=== PATIENT | male | born 1955 | race Caucasian/White ===

== ENCOUNTER 2021-07-28 19:24 | Inpatient (IN) | payer MEDICARE, OTHER ==
[~2021-07-28] VITALS: Ht 172 cm; Wt 117.2 kg
[2021-07-28] MEDS ORDERED: ACETAMINOPHEN 325 MG TABLET PO ONE (19:45)
[2021-07-28] MEDS ORDERED: NS IV 1000 ML 1,000 ML IV SCH (19:45)
--- NOTE | 2021-07-28 19:58 | ED General ---
General Chief Complaint: COVID19 Suspect/Confirmed Stated Complaint: FEVER,COUGH,BACK PAIN Source of Information: Patient, Spouse History of Present Illness Date Seen by Provider: Jul 28, 2021 Time Seen by Provider: 19:34 Initial Comments 66-year-old male presenting with complaint of cough for over a week and fever up to 101.4 today. He has had increased low back pain acute on chronic issue for him. He has had shortness of breath. He reports chills along with the fever. He was recently exposed to a family member with Covid when he went to a wedding on July 17. His symptoms started a few days after that, around July 21. He is visiting from [place] and does not have a local provider. He denies having trouble with his breathing in the past. He has no history of COPD or asthma. Timing/Duration: 1 Week Severity: Moderate Modifying Factors: worse with Movement Associated Systoms: No Chest Pain; Cough; No Diaphoresis; Fever/Chills; No Headaches, No Loss of Appetite; Malaise; No Nausea/Vomiting, No Seizure; Shortn ess of Air; No Syncope; Weakness (general) Allergies and Home Medications Allergies Coded Allergies: amoxicillin (Verified Allergy, Unknown, 07/28/21) Patient Home Medication List Home Medication List Reviewed: Yes Allopurinol (Allopurinol) 300 Mg Tablet, 300 MG PO, (Reported) Entered as Reported by: Ekta Ochoa on 07/29/2114 Last Action: New Order Amlodipine Besylate (Amlodipine Besylate) 2.5 Mg Tablet, 2.5 MG PO DAILY, (Reported) Entered as Reported by: Ekta Ochoa on 07/29/2114 Last Action: New Order Lisinopril (Lisinopril) 10 Mg Tablet, 10 MG PO DAILY, (Reported) Entered as Reported by: Ekta Ochoa on 07/29/2114 Last Action: New Order Omeprazole (Omeprazole) 20 Mg Capsule.dr, 20 MG PO, (Reported) Entered as Reported by: Ekta Ochoa on 07/29/2114 Last Action: New Order Simvastatin (Simvastatin) 20 Mg Tablet, 20 MG PO, (Reported) Entered as Reported by: Ekta Ochoa on 07/29/2114 Last Action: New Order Trazodone HCl (Trazodone HCl) 150 Mg Tablet, 150 MG PO, (Reported) Entered as Reported by: Ekta Ochoa on 07/29/21 0015 Last Action: New Order Review of Systems Review of Systems Constitutional: see HPI, chills, fever EENTM: nose congestion Respiratory: cough, dyspnea on exertion; No hemoptysis; phlegm, short of breath; No stridor, No wheezing Cardiovascular: No chest pain Gastrointestinal: No nausea, No vomiting Genitourinary: No dysuria Musculoskeletal: back pain (acute on chronic low back pain), muscle pain (generalized body aches) Skin: no symptoms reported Psychiatric/Neurological: No Symptoms Reported Past Wmfursq-Ixjtzu-Rzuuyp Hx Patient Social History Tobacco Use?: Yes Tobacco type used: Cigars Smoking Status: Light Tobacco Smoker Use of E-Cig and/or Vaping dev: No Substance use?: No Alcohol Use?: No Pt feels they are or have been: No Past Medical History Surgery/Hospitalization HX: HTN Physical Exam Vital Signs Vital Signs - First Documented 07/28/21 19:30 Temp 36.7 Pulse 98 Resp 16 B/P (MAP) 120/45 (70) Pulse Ox 92 O2 Delivery Room Air Capillary Refill : Height, Weight, BMI Height: '" Weight: lbs. oz. kg; BMI Method: General Appearance: No Apparent Distress, Obese HEENT: PERRL/EOMI, Pharynx Normal Neck: Full Range of Motion, Normal Inspection, Non Tender, Supple Respiratory: Chest Non Tender, Lungs Clear, No Accessory Muscle Use, No Respiratory Distress, Decreased Breath Sounds; No Stridor, No Wheezing Cardiovascular: Regular Rate, Rhythm, Normal Peripheral Pulses Gastrointestinal: Normal Bowel Sounds, No Pulsatile Mass, Non Tender, Soft Rectal: Deferred Extremity: Normal Capillary Refill, Normal Inspection, No Calf Tenderness, No Pedal Edema Neurologic/Psychiatric: Alert, Oriented x3, turn sewer II-XII Norm as Tested Skin: Normal Color, Warm/Dry Focused Exam Lactate Level 07/28/21 20:10: Lactic Acid Level 1.27 Lactic Acid Level Laboratory Tests Test 07/28/21 20:10 Lactic Acid Level 1.27 MMOL/L (0.50-2.00) Progress/Results/Core Measures Suspected Sepsis SIRS Temperature: Pulse: Respiratory Rate: Laboratory Tests 07/28/21 20:10: White Blood Count 4.5 Blood Pressure / Mean: 07/28/21 20:10: Lactic Acid Level 1.27 Laboratory Tests 07/28/21 20:10: Creatinine 0.97, INR Comment 0.9, Platelet Count 124L, Total Bilirubin 0.8 Results/Orders Lab Results Laboratory Tests Test 07/28/21 20:10 07/28/21 20:20 Range/Units White Blood Count 4.5 4.3-11.0 10^3/uL Red Blood Count 5.31 4.30-5.52 10^6/uL Hemoglobin 16.1 13.3-17.7 g/dL Hematocrit 45 40-54 % Mean Corpuscular Volume 86 80-99 fL Mean Corpuscular Hemoglobin 30 25-34 pg Mean Corpuscular Hemoglobin Concent 36 32-36 g/dL Red Cell Distribution Width 13.5 10.0-14.5 % Platelet Count 124 L 130-400 10^3/uL Mean Platelet Volume 10.4 9.0-12.2 fL Immature Granulocyte % (Auto) 1 % Neutrophils (%) (Auto) 80 H 42-75 % Lymphocytes (%) (Auto) 14 12-44 % Monocytes (%) (Auto) 5 0-12 % Eosinophils (%) (Auto) 0 0-10 % Basophils (%) (Auto) 0 0-10 % Neutrophils # (Auto) 3.6 1.8-7.8 X 10^3 Lymphocytes # (Auto) 0.6 L 1.0-4.0 X 10^3 Monocytes # (Auto) 0.2 0.0-1.0 X 10^3 Eosinophils # (Auto) 0.0 0.0-0.3 10^3/uL Basophils # (Auto) 0.0 0.0-0.1 10^3/uL Immature Granulocyte # (Auto) 0.0 0.0-0.1 10^3/uL Percent Immature Platelet Fraction 3.6 0.0-7.6 % Prothrombin Time 12.7 12.2-14.7 SEC INR Comment 0.9 0.8-1.4 Activated Partial Thromboplast Time 39 H 24-35 SEC D-Dimer 1.06 H 0.00-0.49 UG/ML Sodium Level 135 135-145 MMOL/L Potassium Level 3.9 3.6-5.0 MMOL/L Chloride Level 98 98-107 MMOL/L Carbon Dioxide Level 21 21-32 MMOL/L Anion Gap 16 H 5-14 MMOL/L Blood Urea Nitrogen 12 7-18 MG/DL Creatinine 0.97 0.60-1.30 MG/DL Estimat Glomerular Filtration Rate 77 BUN/Creatinine Ratio 12 Glucose Level 100 70-105 MG/DL Lactic Acid Level 1.27 0.50-2.00 MMOL/L Calcium Level 8.7 8.5-10.1 MG/DL Corrected Calcium 8.9 8.5-10.1 MG/DL Total Bilirubin 0.8 0.1-1.0 MG/DL Aspartate Amino Transf (AST/SGOT) 92 H 5-34 U/L Alanine Aminotransferase (ALT/SGPT) 70 H 0-55 U/L Alkaline Phosphatase 86 40-136 U/L Troponin I < 0.30 <0.30 NG/ML C-Reactive Protein 5.07 H <0.50 MG/DL Total Protein 7.3 6.4-8.2 GM/DL Albumin 3.8 3.2-4.5 GM/DL Influenza Type A Antigen NEGATIVE NEGATIVE Influenza Type B Antigen NEGATIVE NEGATIVE Blood Gas Puncture Site RT RADIAL Blood Gas Patient Temperature 36.7 Arterial Blood pH 7.46 H 7.37-7.43 Arterial Blood Partial Pressure CO2 32 L 35-45 MMHG Arterial Blood Partial Pressure O2 52 L 79-93 MMHG Arterial Blood HCO3 22 L 23-27 MMOL/L Arterial Blood Total CO2 23.0 21.0-31.0 MMOL/L Arterial Blood Oxygen Saturation 88 L 94-100 % Arterial Blood Base Excess -1.1 -2.5-2.5 MMOL/L Xavier Test OK Blood Gas Ventilator Setting NO Blood Gas Inspired Oxygen ROOM AIR My Orders Orders - SONJA REED MD Monitor-Rhythm Ecg Trace Only (07/28/21:40) Ed Iv/Invasive Line Start (07/28/21:40) Cbc With Automated Diff (07/28/21:40) Comprehensive Metabolic Panel (07/28/21:40) Crp Fs (07/28/21:40) Troponin I Fs (07/28/21:40) Protime With Inr (07/28/21:40) Partial Thromboplastin Time (07/28/21:40) Ekg Tracing (07/28/2140) Arterial Blood Gas (12/13/21 19:40) Ns Iv 1000 Ml (Sodium Chloride 0.9%) (07/28/21 19:45) Acetaminophen Tablet/Caplet (Tylenol T (07/28/21 19:45) Blood Culture (07/28/21 19:40) Lactic Acid Analyzer (07/28/21 19:40) Covid 19 Inhouse Test (07/28/21 19:40) Influenza A & B Antigens (07/28/21 19:40) Chest 1 View Ap/Pa Only (07/28/21 19:49) O2 (07/28/21 20:06) Ceftriaxone (Rocephin) (07/28/21 21:15) Azithromycin Injection (Zithromax Inject (07/28/21 21:11) Dexamethasone Injection (Decadron Inje (07/28/21 21:11) Ed Admission (Communication) (07/28/21 21:14) Ketorolac Injection (Toradol Injection) (07/28/21 22:00) Albuterol Inhaler (Albuterol) (07/28/21 22:00) Fibrin Degradation Products (07/28/21 20:10) Medications Given in ED Current Medications Medications Dose Ordered Sig/Janice Route Start Time Stop Time Status Last Admin Dose Admin Acetaminophen 650 mg ONCE ONCE PO 07/28/21 19:45 07/28/21 19:46 DC 07/28/21 20:28 650 MG Ceftriaxone Sodium 1000 mg/ Sterile Water 10 ml @ 60 mls/hr ONCE ONCE IV 07/28/21 21:15 07/28/21 21:24 DC 07/28/21 22:19 60 MLS/HR Ketorolac Tromethamine 30 mg ONCE ONCE IVP 07/28/21 22:00 07/28/21 22:01 DC 07/28/21 22:20 30 MG Vital Signs/I&O 07/28/21 07/28/21 07/28/21 07/28/21 19:30 20:30 21:30 21:30 Temp 36.7 Pulse 98 90 85 Resp 16 16 16 B/P (MAP) 120/45 (70) Pulse Ox 92 90 90 91 O2 Delivery Room Air Room Air Nasal Cannula Nasal Cannula O2 Flow Rate 2.00 2.00 07/28/21 22:30 Pulse 79 Resp 16 B/P (MAP) 112/53 Pulse Ox 93 O2 Delivery Nasal Cannula O2 Flow Rate 3.00 Capillary Refill : Progress Note #1: Progress Note With his exposure to a positive Covid patient and having symptoms for over a week with fever and cough and shortness of breath will place him in a Covid isolation room. Obtain basic labs in addition to blood cultures, lactic acid, ABG, chest x-ray, cardiac enzymes. Give IV fluids for hydration, Tylenol for fever. Differential diagnosis includes Covid infection, pneumonia, pulmonary embolism, CHF, acute myocardial infarction Progress Note #2: Progress Note Labs shows normal white blood cell count of 4.5. His lactic acid is not elevated. His electrolytes did not show acute significant abnormality to account for his shortness of breath. His ABG does go along with his hypoxia. On his ABG his pH was 7.46, PCO2 of 32, PO2 of 52 for an O2 sat of 88% on room air. His chest x-ray shows bilateral patchy infiltrates concerning for atypical pneumonia versus Covid. His oxygen saturation is dropping down the 85 to 87% at times on room air. On supplemental oxygen he comes up above 91%. Progress Note #3: Progress Note His influenza swab was negative. He has stable vital signs other than continued hypoxia unless he has supplemental oxygen. Discussed with Dr. Kaiser the on-call hospitalist for [facility]. She accepted the patient for admission for atypical pneumonia, hypoxia, PUI for Covid. Will start antibiotics here and she will place acute orders to continue treatment in the hospital ECG Initial ECG Impression Date: Jul 28, 2021 Initial ECG Impression Time: 20:16 Initial ECG Rate: 91 Initial ECG Rhythm: Normal Sinus Initial ECG Comparisson: No Previous ECG Available Comment Normal sinus rhythm with a heart rate of 91 bpm. Right bundle branch block is present. LA interval 142 ms. QT interval 392 ms with a QTc interval 483 ms. There is no acute ST elevation. There is no prior tracing available for comparison. Diagnostic Imaging Diagonstic Imaging: Xray Plain Films/CT/US/NM/MRI: chest Comments [facility], [place] NAME: OMERO AVENDANO [facility] REC#: [id number] PT STATUS: REG ER : 1955 PHYSICIAN: SONJA REED MD ADMIT DATE: 07/28/21/ER FS Signed Date of Exam:07/28/21 CHEST 1 VIEW AP/PA ONLY INDICATION: Cough and fever Frontal chest obtained at 08:33 p.m. There is no prior study for comparison. There is cardiomegaly. There is central vascular congestion. There are some patchy infiltrates in the perihilar regions and bases on both sides, suspect atypical pneumonia. There is no pneumothorax or gross pleural fluid. There is elevation of the right hemidiaphragm. IMPRESSION: Cardiomegaly and central vascular congestion with patchy infiltrates in the perihilar regions and bases on both sides, suspect atypical pneumonia. Dictated by: Dictated on workstation # [id number] Dict: 07/28/212042 Trans: 07/28/212055 [facility] [id number] Interpreted by: TAMEKA CORDOVA MD Electronically signed by: TAMEKA CORDOVA MD 07/28/212055 Reviewed: Reviewed by Me Departure Communication (Admissions) Time/Spoke to Admitting Phy: 21:09 d/w Dr. Kaiser and will admit for atypical pneumonia and possible COVID. She will place queued orders for the patient. Impression Primary Impression: Atypical pneumonia Additional Impressions: Hypoxemia Person under investigation for COVID-19 Fever Qualified Codes: R50.9 - Fever, unspecified Disposition: 30 STILL A PATIENT Condition: Stable Admissions Decision to Admit Reason: Admit from ER (General) Decision to Admit/Date: Jul 28, 2021 Time/Decision to Admit Time: 21:09 Departure-Patient Inst. Referrals: NO,LOCAL PHYSICIAN (PCP/Family) Primary Care Physician SONJA REED MD Jul 28, 2021 19:58
[2021-07-28 20:35] LABS: ABG PCO2 32 MMHG (35-45); ABG PH 7.46 (7.37-7.43); ABG PO2 52 MMHG (79-93)
[2021-07-28 20:36] LABS: ABG BASE EXCESS -1.1 MMOL/L (-2.5-2.5)
[2021-07-28 20:37] LABS: ABG OXYGEN SATURATION 88 % (94-100); ALLENS TEST OK; INSPIRED O2 ROOM AIR; PATIENT TEMP 36.7; VENTILATOR NO
[2021-07-28 20:44] LABS: HEMATOCRIT 45 % (40-54); HEMOGLOBIN 16.1 g/dL (13.3-17.7); MEAN CORPUSCULAR HEMOGLOBIN 30 pg (25-34); MEAN CORPUSCULAR HGB CONC 36 g/dL (32-36); MEAN CORPUSCULAR VOLUME 86 fL (80-99); MEAN PLATELET VOLUME 10.4 fL (9.0-12.2); PLATELET COUNT 124 10^3/uL (130-400); WHITE BLOOD COUNT 4.5 10^3/uL (4.3-11.0)
[2021-07-28 20:46] LABS: BASOPHILS % (AUTO) 0 % (0-10); EOSINOPHILS % (AUTO) 0 % (0-10); LYMPHOCYTES % (AUTO) 14 % (12-44); MONOCYTES % (AUTO) 5 % (0-12); NEUTROPHILS % (AUTO) 80 % (42-75)
[2021-07-28 20:47] LABS: LYMPHOCYTES # (AUTO) 0.6 X 10^3 (1.0-4.0); MONOCYTES # (AUTO) 0.2 X 10^3 (0.0-1.0); NEUTROPHILS # (AUTO) 3.6 X 10^3 (1.8-7.8)
--- NOTE | 2021-07-28 20:51 | Diagnostic Imaging Report ---
INDICATION: Cough and fever Frontal chest obtained at 08:33 p.m. There is no prior study for comparison. There is cardiomegaly. There is central vascular congestion. There are some patchy infiltrates in the perihilar regions and bases on both sides, suspect atypical pneumonia. There is no pneumothorax or gross pleural fluid. There is elevation of the right hemidiaphragm. IMPRESSION: Cardiomegaly and central vascular congestion with patchy infiltrates in the perihilar regions and bases on both sides, suspect atypical pneumonia. Dictated by: Dictated on workstation # [id number]
[2021-07-28 21:01] LABS: BUN/CREATININE RATIO 12; CARBON DIOXIDE 21 MMOL/L (21-32); CHLORIDE 98 MMOL/L (98-107); CREATININE SERUM 0.97 MG/DL (0.60-1.30); GFR ESTIMATED 77; POTASSIUM 3.9 MMOL/L (3.6-5.0); SODIUM 135 MMOL/L (135-145)
[2021-07-28 21:02] LABS: ALANINE AMINOTRANSFERASE 70 U/L (0-55); ALBUMIN 3.8 GM/DL (3.2-4.5); BILIRUBIN,TOTAL 0.8 MG/DL (0.1-1.0); CALCIUM 8.7 MG/DL (8.5-10.1); GLUCOSE 100 MG/DL (70-105); TOTAL PROTEIN 7.3 GM/DL (6.4-8.2)
[2021-07-28 21:03] LABS: ALKALINE PHOSPHATASE 86 U/L (40-136)
[2021-07-28] MEDS ORDERED: AZITHROMYCIN INJECTION 500 MG in NS (IVPB) 250 ML IV STA (21:11)
[2021-07-28] MEDS ORDERED: cefTRIAXone 1,000 MG in WATER (STERILE) FOR INJECTION 10 ML IV ONE (21:15)
[2021-07-28] MEDS ORDERED: KETOROLAC 30 MG/ML VIAL IVP ONE (22:00)
[2021-07-28 22:30] LABS: INR 0.9 (0.8-1.4); PROTHROMBIN TIME PATIENT 12.7 SEC (12.2-14.7)
[2021-07-28 22:33] LABS: FIBRIN DEGRADATION PRODUCTS 1.06 UG/ML (0.00-0.49)
[2021-07-28] MEDS: RT-ALBUTEROL HFA 8.5 GM INHALER IH SCH (23:18)
[2021-07-29] MEDS ORDERED: TRAZ150T72 PO (00:15)
[2021-07-29] MEDS ORDERED: SIMV20TA26 PO (00:15)
[2021-07-29] MEDS ORDERED: ALLO300T2 PO (00:15)
[2021-07-29] MEDS ORDERED: OMEP20CA18 PO (00:15)
[2021-07-29] MEDS ORDERED: LISI10TA25 PO (00:15)
[2021-07-29] MEDS ORDERED: AMLO2.5T4 PO (00:15)
[2021-07-29] MEDS ORDERED: ONDANSETRON 4 MG/2 ML (SDV) Z0FRAN IVP PRN (00:45)
[2021-07-29] MEDS ORDERED: ACETAMINOPHEN 325 MG TABLET PO PRN (00:45)
[2021-07-29 00:46] VITALS: BP 108/55
[2021-07-29] MEDS: RT-ALBUTEROL HFA 8.5 GM INHALER IH SCH ×7 (03:11→22:49)
[2021-07-29 04:25] VITALS: BP 136/62
--- NOTE | 2021-07-29 07:04 | History & Physical-Hospitalist ---
History of Present Illness HPI/Chief Complaint CC: Covid-19 pneumonia with hypoxic respiratory failure HPI: This is a 66yo[place] that began having symptoms on 07/21 diagnosed with Covid-19 and presented yesterday with SOB and low oxygen. He was assessed to need oxygen supplementation and IV medication to prevent decompensation. He appears to have increased BMI, high risk for intubation with underlying CONRAD. Home meds will be restarted and currently he is doing well. Source: patient Exam Limitations: no limitations Date Seen 07/29/21 Time Seen by a Provider: 10:30 Attending Physician Maira Kaiser DO PCP No,Local Physician Referring Physician Date of Admission Jul 29, 2021 at 00:12 Home Medications & Allergies Home Medications Reviewed patient Home Medication Reconciliation performed by pharmacy medication reconciliations calibration technician and/or nursing. Patients Allergies have been reviewed. Allergies Allergies Coded Allergies amoxicillin (Verified Allergy, Unknown, Rash, 07/29/21) Past Fhfqygd-Etvqtk-Mztbuj Hx Patient Social History Marrital Status: Employed/Student: retired Tobacco Use?: Yes Tobacco type used: Cigars Smoking Status: Light Tobacco Smoker Smokeless Tobacco Frequency: Never a User Use of E-Cig and/or Vaping dev: No Substance use?: No Alcohol Use?: Yes Alcohol type: Beer, Hard Liquor, Wine Alcohol Frequency: Once in a while Pt feels they are or have been: Yes Immunizations Up To Date Tetanus Booster (TDap): Unknown Hepatitis A: No Hepatitis B: No Current Status Advance Directives: No Communicates: Verbally Primary Language: Israeli Preferred Spoken Language: Israeli Is interpretation needed?: No Implanted or Applied Medical D: None Past Medical History High Cholesterol, Hypertension Gout Depression Review of Systems Constitutional: see HPI, malaise, weakness EENTM: no symptoms reported Respiratory: cough, dyspnea on exertion, short of breath Cardiovascular: no symptoms reported Gastrointestinal: no symptoms reported Genitourinary: no symptoms reported Musculoskeletal: no symptoms reported Skin: no symptoms reported Psychiatric/Neurological: No Symptoms Reported All Other Systems Reviewed Negative Unless Noted: Yes Physical Exam Physical Exam Vital Signs Vital Signs - First Documented 07/28/21 19:30 Temp 36.7 Pulse 98 Resp 16 B/P (MAP) 120/45 (70) Pulse Ox 92 O2 Delivery Room Air Capillary Refill : Less Than 3 Seconds Height, Weight, BMI Height: '" Weight: lbs. oz. kg; 39.61 BMI Method: General Appearance: No Apparent Distress, Anxious, Chronically ill, Obese Eyes: Right Eye Normal Inspection, Right Eye PERRL HEENT: PERRL/EOMI, Normal ENT Inspection, Pharynx Normal, Moist Mucous Membranes Neck: Full Range of Motion, Normal Inspection, Non Tender Respiratory: Chest Non Tender, No Accessory Muscle Use, No Respiratory Distress, Decreased Breath Sounds, Wheezing Cardiovascular: Regular Rate, Rhythm, No Edema, No Gallop, No JVD, No Murmur, Normal Peripheral Pulses Gastrointestinal: Normal Bowel Sounds, No Organomegaly, No Pulsatile Mass, Non Tender, Soft Back: Normal Inspection, No CVA Tenderness, No Vertebral Tenderness Extremity: Normal Capillary Refill, Normal Inspection, Normal Range of Motion, Non Tender, No Calf Tenderness, No Pedal Edema Neurologic/Psychiatric: Alert, Oriented x3, No Motor/Sensory Deficits, Normal Mood/Affect Skin: Normal Color, Warm/Dry Lymphatic: No Adenopathy Results Results/Procedures Labs Laboratory Tests 07/28/21 20:10 Patient resulted labs reviewed. Assessment/Plan Admission Diagnosis Assessment: Acute hypoxic respiratory failure COVID-19 pneumonia Morbid obesity BMI 40 Suspected CONRAD gout Hypertension Hyperlipidemia GERD Plan: COVID-19 treatment protocol Oxygen Home meds Admission Status: Inpatient Order (span 2 midnights) Reason for Inpatient Admission: COVID-19 pneumonia Diagnosis/Problems Diagnosis/Problems (1) COVID (2) Fever Status: Acute Qualifiers: Fever type: unspecified Qualified Codes: R50.9 - Fever, unspecified (3) Hypoxemia Status: Acute MAIRA KAISER DO Jul 29, 2021 07:04
[2021-07-29] MEDS ORDERED: ALLO100T PO (08:10)
[2021-07-29] MEDS ORDERED: TRZ50T PO (08:10)
[2021-07-29 08:20] VITALS: BP 139/64
[2021-07-29] MEDS: ENOXAPARIN 40 MG/0.4 ML (LOVENOX) SYR SC SCH (08:51)
[2021-07-29 12:00] VITALS: BP 138/64
[2021-07-29 16:00] VITALS: BP 137/67
[2021-07-29 20:00] VITALS: BP 121/60
[2021-07-29] MEDS: cefTRIAXone 1 GM PRE-MIX 50 ML IV SCH (20:02)
[2021-07-29] MEDS: traZODone 50 MG (DESYREL) TAB PO SCH (20:02)
[2021-07-29] MEDS: AZITHROMYCIN INJECTION 250 MG in NS (IVPB) 250 ML IV SCH (20:02)
[2021-07-29] MEDS ORDERED: CEFTRIAXONE IV SCH (21:00)
[2021-07-30 00:20] VITALS: BP 124/59
[2021-07-30 03:55] VITALS: BP 105/53
--- NOTE | 2021-07-30 05:47 | Progress Note - Hospitalist ---
Subjective HPI/CC On Admission Date Seen by Provider: Jul 30, 2021 Time Seen by Provider: 11:15 CC: Covid-19 pneumonia with hypoxic respiratory failure HPI: This is a 66yo[place] that began having symptoms on 07/21 diagnosed with Covid-19 and presented yesterday with SOB and low oxygen. He was assessed to need oxygen supplementation and IV medication to prevent decompensation. He appears to have increased BMI, high risk for intubation with underlying CONRAD. Home meds will be restarted and currently he is doing well. Subjective/Events-last exam Pt doing pretty well Feels like he is not doing well Lungs remain clear Hypoxia requiring oxygen but not increasing rapidly Is not covid vaccinated Checked meds and labs Restarted home meds No other concerns at this current time Review of Systems General: Fatigue, Malaise Pulmonary: Dyspnea, Cough Focused Exam Lactate Level 07/28/21 20:10: Lactic Acid Level 1.27 Objective Exam Vital Signs Vital Signs Date Time Temp Pulse Resp B/P (MAP) Pulse Ox O2 Delivery O2 Flow Rate FiO2 07/31/21 03:20 36.2 63 26 113/58 (76) 93 Nasal Cannula 5.00 Capillary Refill : Less Than 3 Seconds General Appearance: No Apparent Distress, WD/WN, Chronically ill, Obese Respiratory: Lungs Clear, Normal Breath Sounds, Decreased Breath Sounds Cardiovascular: Regular Rate, Rhythm Neurologic/Psychiatric: Alert, Oriented x3, No Motor/Sensory Deficits, Normal Mood/Affect Results/Procedures Lab Laboratory Tests 07/30/21 05:55 Patient resulted labs reviewed. Assessment/Plan Assessment and Plan Assess & Plan/Chief Complaint Assessment: Acute hypoxic respiratory failure COVID-19 pneumonia Morbid obesity BMI 40 Suspected CONRAD gout Hypertension Hyperlipidemia GERD Plan: COVID-19 treatment protocol Oxygen Home meds 07/30/2021: Continue protocol meds Supportive care Diagnosis/Problems Diagnosis/Problems (1) COVID (2) Fever Status: Acute Qualifiers: Fever type: unspecified Qualified Codes: R50.9 - Fever, unspecified (3) Hypoxemia Status: Acute GUICHO PARK DO Jul 30, 2021 05:47
[2021-07-30 06:05] LABS: BASOPHILS % (AUTO) 0 % (0-10); EOSINOPHILS % (AUTO) 0 % (0-10); HEMATOCRIT 43 % (40-54); MEAN CORPUSCULAR HEMOGLOBIN 30 pg (25-34); MEAN CORPUSCULAR HGB CONC 35 g/dL (32-36); MEAN CORPUSCULAR VOLUME 86 fL (80-99); MONOCYTES # (AUTO) 0.4 10^3/uL (0.0-1.0)
[2021-07-30 06:07] LABS: LYMPHOCYTES # (AUTO) 0.6 10^3/uL (1.0-4.0); LYMPHOCYTES % (AUTO) 8 % (12-44); MEAN PLATELET VOLUME 10.3 fL (9.0-12.2); MONOCYTES % (AUTO) 5 % (0-12); NEUTROPHILS # (AUTO) 6.3 10^3/uL (1.8-7.8); NEUTROPHILS % (AUTO) 87 % (42-75); PLATELET COUNT 139 10^3/uL (130-400); WHITE BLOOD COUNT 7.3 10^3/uL (4.3-11.0)
[2021-07-30 06:11] LABS: ALBUMIN 3.4 GM/DL (3.2-4.5)
[2021-07-30 06:12] LABS: POTASSIUM 4.1 MMOL/L (3.6-5.0)
[2021-07-30 06:13] LABS: CALCIUM 8.7 MG/DL (8.5-10.1)
[2021-07-30 06:14] LABS: TOTAL PROTEIN 6.6 GM/DL (6.4-8.2)
[2021-07-30 06:16] LABS: BILIRUBIN,TOTAL 0.6 MG/DL (0.1-1.0)
[2021-07-30 06:17] LABS: CREATININE SERUM 0.75 MG/DL (0.60-1.30)
--- NOTE | 2021-07-30 07:15 | Diagnostic Imaging Report ---
INDICATION: COVID pneumonia Upright portable chest shows normal heart size and vascularity. There are patchy bilateral infiltrates slightly worse compared to the 07/28/21 study. There is no effusion or pneumothorax. IMPRESSION: Increasing infiltrates. Report was faxed to [facility] by lm at 7:13AM. Dictated by: Dictated on workstation # [id number]
[2021-07-30 08:00] VITALS: BP 123/57
[2021-07-30] MEDS: RT-ALBUTEROL HFA 8.5 GM INHALER IH SCH ×5 (08:03→21:27)
[2021-07-30] MEDS: lisINopril 10 MG (PRINIVIL) TABLET PO SCH (08:38)
[2021-07-30] MEDS: PANTOPRAZOLE 20 MG TABLET (PROTONIX) PO SCH (08:38)
[2021-07-30] MEDS: ALLOPURINOL 100 MG (ZYLOPRIM) TAB PO SCH (08:38)
[2021-07-30] MEDS: ENOXAPARIN 40 MG/0.4 ML (LOVENOX) SYR SC SCH (08:38)
[2021-07-30] MEDS: SIMvastatin 20 MG (ZOCOR) TAB PO SCH (08:39)
[2021-07-30] MEDS: amLODIPine 2.5MG (NORVASC) TAB PO SCH (08:39)
[2021-07-30 12:00] VITALS: BP 128/61
[2021-07-30 16:19] VITALS: BP 112/53
[2021-07-30 20:01] VITALS: BP 131/61
[2021-07-30] MEDS: cefTRIAXone 1 GM PRE-MIX 50 ML IV SCH (20:36)
[2021-07-30] MEDS: traZODone 50 MG (DESYREL) TAB PO SCH (21:16)
[2021-07-30] MEDS: AZITHROMYCIN INJECTION 250 MG in NS (IVPB) 250 ML IV SCH (21:20)
[2021-07-31] VITALS (7 sets, daily range): BP systolic 113–136; BP diastolic 58–73
[2021-07-31] MEDS: RT-ALBUTEROL HFA 8.5 GM INHALER IH SCH ×6 (03:19→22:16)
[2021-07-31 05:55] LABS: BASOPHILS % (AUTO) 0 % (0-10); EOSINOPHILS % (AUTO) 0 % (0-10); HEMATOCRIT 40 % (40-54); HEMOGLOBIN 13.7 g/dL (13.3-17.7); LYMPHOCYTES # (AUTO) 0.5 10^3/uL (1.0-4.0); LYMPHOCYTES % (AUTO) 7 % (12-44); MEAN CORPUSCULAR HEMOGLOBIN 29 pg (25-34); MEAN CORPUSCULAR HGB CONC 34 g/dL (32-36); MEAN CORPUSCULAR VOLUME 86 fL (80-99); MEAN PLATELET VOLUME 10.8 fL (9.0-12.2); MONOCYTES # (AUTO) 0.4 10^3/uL (0.0-1.0); MONOCYTES % (AUTO) 5 % (0-12); NEUTROPHILS # (AUTO) 6.4 10^3/uL (1.8-7.8); NEUTROPHILS % (AUTO) 87 % (42-75); PLATELET COUNT 158 10^3/uL (130-400); WHITE BLOOD COUNT 7.4 10^3/uL (4.3-11.0)
--- NOTE | 2021-07-31 05:57 | Progress Note - Hospitalist ---
Subjective HPI/CC On Admission Date Seen by Provider: Jul 31, 2021 Time Seen by Provider: 11:00 CC: Covid-19 pneumonia with hypoxic respiratory failure HPI: This is a 66yo[place] that began having symptoms on 07/21 diagnosed with Covid-19 and presented yesterday with SOB and low oxygen. He was assessed to need oxygen supplementation and IV medication to prevent decompensation. He appears to have increased BMI, high risk for intubation with underlying CONRAD. Home meds will be restarted and currently he is doing well. Subjective/Events-last exam Pt doing a lot better Remains on 5 liters of O2 His nose is very dry so will initiated humidified oxygen and saline nasal spray Inquiring how long this takes for him to get over and I said I need to ween him down a little bit more on O2 Review of Systems General: Fatigue, Malaise Pulmonary: Dyspnea Focused Exam Lactate Level Objective Exam Vital Signs Vital Signs Date Time Temp Pulse Resp B/P (MAP) Pulse Ox O2 Delivery O2 Flow Rate FiO2 08/01/21 04:16 36.3 70 22 146/66 (92) 95 Nasal Cannula 5.00 Capillary Refill : Less Than 3 Seconds General Appearance: No Apparent Distress, WD/WN, Anxious, Chronically ill Respiratory: No Accessory Muscle Use, No Respiratory Distress, Decreased Breath Sounds Cardiovascular: Regular Rate, Rhythm Neurologic/Psychiatric: Alert, Oriented x3, No Motor/Sensory Deficits, Normal Mood/Affect Results/Procedures Lab Patient resulted labs reviewed. Assessment/Plan Assessment and Plan Assess & Plan/Chief Complaint Assessment: Acute hypoxic respiratory failure COVID-19 pneumonia Morbid obesity BMI 40 Suspected CONRAD gout Hypertension Hyperlipidemia GERD Plan: COVID-19 treatment protocol Oxygen Home meds 07/30/2021: Continue protocol meds Supportive care 07/31/2021: Supportive care Wean oxygen when able Diagnosis/Problems Diagnosis/Problems (1) COVID (2) Fever Status: Acute Qualifiers: Fever type: unspecified Qualified Codes: R50.9 - Fever, unspecified (3) Hypoxemia Status: Acute GUICHO PARK DO Jul 31, 2021 05:57
[2021-07-31 06:19] LABS: BAND NEUTROPHILS 1 %; LYMPHOCYTES % (MANUAL) 8 %; MONOCYTES % (MANUAL) 5 %; NEUTROPHILS % (MANUAL) 82 %
[2021-07-31 06:20] LABS: ATYPICAL LYMPHOCYTES 2 %; BLAST CELLS 2 %; RBC MORPH NORMAL
[2021-07-31 06:22] LABS: ALBUMIN 3.3 GM/DL (3.2-4.5); POTASSIUM 3.8 MMOL/L (3.6-5.0)
[2021-07-31 06:23] LABS: CALCIUM 8.4 MG/DL (8.5-10.1)
[2021-07-31 06:24] LABS: TOTAL PROTEIN 6.2 GM/DL (6.4-8.2)
[2021-07-31 06:26] LABS: BILIRUBIN,TOTAL 0.5 MG/DL (0.1-1.0)
[2021-07-31 06:28] LABS: CREATININE SERUM 0.75 MG/DL (0.60-1.30)
[2021-07-31] MEDS: ENOXAPARIN 40 MG/0.4 ML (LOVENOX) SYR SC SCH (09:04)
[2021-07-31] MEDS: lisINopril 10 MG (PRINIVIL) TABLET PO SCH (09:04)
[2021-07-31] MEDS: ALLOPURINOL 100 MG (ZYLOPRIM) TAB PO SCH (09:04)
[2021-07-31] MEDS: SIMvastatin 20 MG (ZOCOR) TAB PO SCH (09:04)
[2021-07-31] MEDS: PANTOPRAZOLE 20 MG TABLET (PROTONIX) PO SCH (09:04)
[2021-07-31] MEDS: amLODIPine 2.5MG (NORVASC) TAB PO SCH (09:04)
[2021-07-31] MEDS: SALINE NASAL SPRAY (OCEAN) 45 ML BTL SCH ×2 (13:30→20:12)
[2021-07-31] MEDS: cefTRIAXone 1 GM PRE-MIX 50 ML IV SCH (20:11)
[2021-07-31] MEDS: traZODone 50 MG (DESYREL) TAB PO SCH (20:12)
[2021-07-31] MEDS: AZITHROMYCIN INJECTION 250 MG in NS (IVPB) 250 ML IV SCH (20:44)
[2021-08-01] MEDS: RT-ALBUTEROL HFA 8.5 GM INHALER IH SCH ×4 (02:45→13:31)
[2021-08-01 04:16] VITALS: BP 146/66
--- NOTE | 2021-08-01 05:53 | Progress Note - Hospitalist ---
Subjective HPI/CC On Admission Date Seen by Provider: Aug 01, 2021 Time Seen by Provider: 10:00 CC: Covid-19 pneumonia with hypoxic respiratory failure HPI: This is a 66yoWM [place] on [place] that began having symptoms on 07/21 diagnosed with Covid-19 and presented yesterday with SOB and low oxygen. He was assessed to need oxygen supplementation and IV medication to prevent decompensation. He appears to have increased BMI, high risk for intubation with underlying CONRAD. Home meds will be restarted and currently he is doing well. Subjective/Events-last exam Patient feels really good Wants to go home Hospital Course: Pt had an uneventful hospital course for 4 days after he was admitted for Covid-19 with hypoxia. He required aggressive oxygen supplementation and he was restarted on home medications. He received Decadron and antibiotics and overall he did very well and was deemed stable for DC on home O2 and will have close follow up with his PCP. Review of Systems General: Fatigue, Malaise Pulmonary: Dyspnea Objective Exam Vital Signs Vital Signs Date Time Temp Pulse Resp B/P (MAP) Pulse Ox O2 Delivery O2 Flow Rate FiO2 08/01/21 15:59 36.5 71 18 128/65 (86) 90 Room Air 08/01/21 13:31 0.00 Capillary Refill : Less Than 3 Seconds General Appearance: No Apparent Distress, WD/WN, Chronically ill, Obese Respiratory: Lungs Clear, Normal Breath Sounds Neurologic/Psychiatric: Alert, Oriented x3 Results/Procedures Lab Laboratory Tests 08/01/21 06:08 Patient resulted labs reviewed. Assessment/Plan Assessment and Plan Assess & Plan/Chief Complaint Assessment: Acute hypoxic respiratory failure COVID-19 pneumonia Morbid obesity BMI 40 Suspected CONRAD gout Hypertension Hyperlipidemia GERD Plan: COVID-19 treatment protocol Oxygen Home meds 07/30/2021: Continue protocol meds Supportive care 07/31/2021: Supportive care Wean oxygen when able 08/01/2021: Discharge planned Diagnosis/Problems Diagnosis/Problems (1) COVID (2) Fever Status: Acute Qualifiers: Fever type: unspecified Qualified Codes: R50.9 - Fever, unspecified (3) Hypoxemia Status: Acute GUICHO PARK DO Aug 01, 2021 05:53
[2021-08-01 06:23] LABS: BASOPHILS % (AUTO) 0 % (0-10); EOSINOPHILS % (AUTO) 0 % (0-10); HEMATOCRIT 40 % (40-54); HEMOGLOBIN 13.7 g/dL (13.3-17.7); LYMPHOCYTES # (AUTO) 0.9 10^3/uL (1.0-4.0); LYMPHOCYTES % (AUTO) 14 % (12-44); MEAN CORPUSCULAR HEMOGLOBIN 30 pg (25-34); MEAN CORPUSCULAR HGB CONC 35 g/dL (32-36); MEAN CORPUSCULAR VOLUME 86 fL (80-99); MEAN PLATELET VOLUME 10.6 fL (9.0-12.2); MONOCYTES # (AUTO) 0.4 10^3/uL (0.0-1.0); MONOCYTES % (AUTO) 6 % (0-12); NEUTROPHILS # (AUTO) 5.2 10^3/uL (1.8-7.8); NEUTROPHILS % (AUTO) 79 % (42-75); PLATELET COUNT 166 10^3/uL (130-400); WHITE BLOOD COUNT 6.6 10^3/uL (4.3-11.0)
[2021-08-01 06:38] LABS: ALBUMIN 3.3 GM/DL (3.2-4.5); POTASSIUM 3.9 MMOL/L (3.6-5.0)
[2021-08-01 06:39] LABS: CALCIUM 8.5 MG/DL (8.5-10.1)
[2021-08-01 06:40] LABS: TOTAL PROTEIN 6.1 GM/DL (6.4-8.2)
[2021-08-01 06:42] LABS: BILIRUBIN,TOTAL 0.6 MG/DL (0.1-1.0)
[2021-08-01 06:44] LABS: CREATININE SERUM 0.73 MG/DL (0.60-1.30)
[2021-08-01 08:54] VITALS: BP 137/79
[2021-08-01] MEDS: PANTOPRAZOLE 20 MG TABLET (PROTONIX) PO SCH (08:59)
[2021-08-01] MEDS: ALLOPURINOL 100 MG (ZYLOPRIM) TAB PO SCH (08:59)
[2021-08-01] MEDS: ENOXAPARIN 40 MG/0.4 ML (LOVENOX) SYR SC SCH (08:59)
[2021-08-01] MEDS: lisINopril 10 MG (PRINIVIL) TABLET PO SCH (08:59)
[2021-08-01] MEDS: SALINE NASAL SPRAY (OCEAN) 45 ML BTL SCH (09:00)
[2021-08-01] MEDS: amLODIPine 2.5MG (NORVASC) TAB PO SCH (09:11)
[2021-08-01] MEDS: SIMvastatin 20 MG (ZOCOR) TAB PO SCH (09:12)
[2021-08-01 12:01] VITALS: BP 134/73
--- NOTE | 2021-08-01 12:10 | Physical Therapy Evaluation ---
PT Evaluation-General Medical Diagnosis Admission Date Jul 29, 2021 at 00:12 Medical Diagnosis: COVID Onset Date: Jul 29, 2021 Therapy Diagnosis Therapy Diagnosis: Covid Precautions Precautions/Isolations: Contact Isolation Referral Physician: Dr. Kaiser Reason for Referral: Evaluation/Treatment Social History Home: Current Living Status: Spouse Entry Into Home: Stairs With Railing PT Steps Into Home: 3 Prior Prior Level of Function SCALE: Activities may be completed with or without assistive devices. 5-[id number]-nsordzg completes the activity by him/herself with no assistance from a helper. 5-Set-up or Clean-up Assistance-helper sets up or cleans up; patient completes activity. [place] assists only prior to or following the activity. 4-Supervision or Touching Assistance-helper provides verbal cues and/or touching/steadying and/or contact guard assistance as patient completes activity. Assistance may be provided throughout the activity or intermittently. 3-Partial/Moderate Assistance-helper does LESS THAN HALF the effort. [place] lifts, holds or supports trunk or limbs, but provides less than half the effort. 2-Substantial/Maximal Assistance-helper does MORE THAN HALF the effort. [place] lifts or holds trunk or limbs and provides more than half the effort. 3-Qfmdgeevw-hmviga does ALL the effort. Patient does none of the effort to complete the activity. Or, the assistance of 2 or more helpers is required for the patient to complete the activity. If activity was not attempted, code reason: 7-Patient Refused. 9-Not Applicable-not attempted and the patient did not perform the activity before the current illness, exacerbation or injury. 10-Not Attempted due to Environmental Limitations-(lack of equipment, weather restraints, etc.). 88-Not Attempted due to Medical Conditions or Safety Concerns. Bed Mobility: 6 Transfers (B,C,W/C): 6 Gait: 6 Stairs: 6 Indoor Mobility (Ambulation): Independent Stairs: Independent Prior Devices Use: None PT Evaluation-Current Subjective Patient reports no pain at this time. He reports that he has been sitting up a lot as when he lies down he "coughs up a lot of junk." Also reports he has been walking around the room a little bit. Objective Patient Orientation: Person, Place, Time, Situation Attachments: Oxygen ROM/Strength ROM Lower Extremities WFLs bilaterally all planes with AROM Strength Lower Extremities 5/5 bilaterally all planes Sensory Vision: Functional Hearing: Functional Sensation Right Lower Extremit: Intact Sensation Left Lower Extremity: Intact Transfers Roll Left to Right (QC): 6 Sit to Lying (QC): 6 Lying to Sitting/Side of Bed(Q: 6 Sit to Stand (QC): 6 Chair/Mdv-eh-Qejkl Xfer(QC): 6 Gait Does the Patient Walk?: Yes Mode of Locomotion: Walk Anticipated Mode of Locomotion: Walk Walk 10 feet (QC): 6 Walk 50 ft with 2 Turns(QC): 6 Walk 150 ft (QC): 6 Distance: 200 ft. Gait Assistive Device: None Balance Sitting Static: Normal Sitting Dynamic: Normal Standing Static: Normal Standing Dynamic: Normal Assessment/Needs Patient tolerate evaluation well. No further therapy needed at this time. Rehab Potential: Good PT Plan Treatment/Plan Treatment Plan: Discontinue PT Treatment Duration: Aug 01, 2021 Frequency: Discharge Recommendations Target Placement Home Time/GCodes Time In: 1140 Time Out: 1205 Total Billed Treatment Time: 25 (VisitMary) Total Billed Treatment Mary Martinez JOHN A PT Aug 01, 2021 12:10
[2021-08-01] MEDS ORDERED: ASPI-1238 PO (12:31)
[2021-08-01] MEDS ORDERED: DEXA6TAB6 PO (12:31)
[2021-08-01] MEDS ORDERED: CEFD300C3 PO (12:31)
--- NOTE | 2021-08-01 12:32 | Discharge Summary ---
Discharge Summary Hospital Course Was the Problem List Reviewed?: Yes Problems/Dx: (1) COVID (2) Fever Status: Acute Qualifiers: Qualified Codes: R50.9 - Fever, unspecified (3) Hypoxemia Status: Acute Hospital Course Date of Admission: Jul 29, 2021 at 00:12 Admission Diagnosis : Family Physician/Provider: No,Local Physician Date of Discharge: 08/01/21 Discharge Diagnosis: Acute hypoxic respiratory failure, COVID-19 pneumonia in invaccinated individual Hospital Course: Hospital Course: Pt had an uneventful hospital course for 4 days after he was admitted for Covid-19 with hypoxia. He required aggressive oxygen supplementation and he was restarted on home medications. He received Decadron and antibiotics and overall he did very well and was deemed stable for DC on home O2 and will have close follow up with his PCP. Labs and Pending Lab Test: Laboratory Tests 08/01/21 06:08: White Blood Count 6.6, Red Blood Count 4.61, Hemoglobin 13.7, Hematocrit 40, Mean Corpuscular Volume 86, Mean Corpuscular Hemoglobin 30, Mean Corpuscular Hemoglobin Concent 35, Red Cell Distribution Width 13.5, Platelet Count 166, Mean Platelet Volume 10.6, Immature Granulocyte % (Auto) 2, Neutrophils (%) (Auto) 79H, Lymphocytes (%) (Auto) 14, Monocytes (%) (Auto) 6, Eosinophils (%) (Auto) 0, Basophils (%) (Auto) 0, Neutrophils # (Auto) 5.2, Lymphocytes # (Auto) 0.9L, Monocytes # (Auto) 0.4, Eosinophils # (Auto) 0.0, Basophils # (Auto) 0.0, Immature Granulocyte # (Auto) 0.1, Sodium Level 141, Potassium Level 3.9, Chloride Level 109H, Carbon Dioxide Level 21, Anion Gap 11, Blood Urea Nitrogen 13, Creatinine 0.73, Estimat Glomerular Filtration Rate 107, BUN/Creatinine Ratio 18, Glucose Level 117H, Calcium Level 8.5, Corrected Calcium 9.1, Total Bilirubin 0.6, Aspartate Amino Transf (AST/SGOT) 66H, Alanine Aminotransferase (ALT/SGPT) 97H, Alkaline Phosphatase 65, Total Protein 6.1L, Albumin 3.3 Microbiology 07/28/21 Blood Culture - Preliminary, Resulted No growth Home Meds Active Reported Allopurinol 100 Mg Tablet 100 Mg PO DAILY Trazodone HCl 50 Mg Tablet 150 Mg PO HS TAKES 3 (50NG) TABS Amlodipine Besylate 2.5 Mg Tablet 2.5 Mg PO DAILY Simvastatin 20 Mg Tablet 20 Mg PO DAILY Lisinopril 10 Mg Tablet 10 Mg PO DAILY LAST FILLED 02-15-2021 #90/90 DAY SUPPLY Omeprazole 20 Mg Capsule.dr 20 Mg PO DAILY Assessment/Pt Instructions PCP in 2 weeks Discharge Planning: <30 minutes discharge planning Discharge Instructions Discharge Diet: No Restrictions Discharge Physical Examination Vital Signs Vital Signs Date Time Temp Pulse Resp B/P (MAP) Pulse Ox O2 Delivery O2 Flow Rate FiO2 08/01/21 12:01 36.6 76 18 134/73 (93) 93 Nasal Cannula 2.00 General Appearance: No Apparent Distress, WD/WN, Chronically ill Respiratory: Lungs Clear Allergies: Coded Allergies: amoxicillin (Verified Allergy, Unknown, Rash, 07/29/21) Discharge Summary Date of Admission Jul 29, 2021 at 00:12 Date of Discharge Discharge Date: Aug 01, 2021 Admission Diagnosis Assessment: Acute hypoxic respiratory failure COVID-19 pneumonia Morbid obesity BMI 40 Suspected CONRAD gout Hypertension Hyperlipidemia GERD Plan: COVID-19 treatment protocol Oxygen Home meds Discharge Diagnosis Assessment: Acute hypoxic respiratory failure COVID-19 pneumonia Morbid obesity BMI 40 Suspected CONRAD gout Hypertension Hyperlipidemia GERD Plan: COVID-19 treatment protocol Oxygen Home meds 07/30/2021: Continue protocol meds Supportive care 07/31/2021: Supportive care Wean oxygen when able (1) COVID (2) Fever Status: Acute Qualifiers: Qualified Codes: R50.9 - Fever, unspecified (3) Hypoxemia Status: Acute GU[place]HO PARK DO Aug 01, 2021 12:32
--- NOTE | 2021-08-01 14:12 | Occ Therapy Progress Note ---
Therapy Progress Note OT orders received and chart was reviewed. Upon arrival to room, pt up ad marie. No unsteadiness or use of AD. Pt denies any self care concerns. Per PT note, pt ambulated 200 feet independently. No OT services warranted at this time. OT to discharge. Shakira Gonzalez OT Aug 01, 2021 14:12
[2021-08-01 15:59] VITALS: BP 128/65
== END 2021-08-01 16:43 | disposition home or self-care (01) | DRG 177 ==
LOC: ER FS 19:26 → 4TH 07-29 00:12
PROVIDERS: ADMIT Internal Medicine; ATTEND Internal Medicine
DX: U07.1 COVID-19 (principal); J96.01 Acute respiratory failure with hypoxia; J12.82 Pneumonia due to coronavirus disease 2019; Z68.41 Body mass index [BMI] 40.0-44.9, adult; E66.01 Morbid (severe) obesity due to excess calories; G47.33 Obstructive sleep apnea (adult) (pediatric); I10 Essential (primary) hypertension; K21.9 Gastro-esophageal reflux disease without esophagitis; M10.9 Gout, unspecified; F17.210 Nicotine dependence, cigarettes, uncomplicated; E78.00 Pure hypercholesterolemia, unspecified; Z79.899 Other long term (current) drug therapy
CPT/HCPCS: 36415; 71045; 80053; 82805; 83605; 84484; 85007; 85025; 85027; 85379; 85610; 85730; 86141; 87040; 87636; 87804; 93005; 93041; 94640; 94664; 94760